=== PATIENT | female | born 1995 | race Asian ===

== ENCOUNTER → 2017-06-22 00:56 | Emergency (ER) | payer OTHER ==
--- NOTE | 2017-06-22 01:59 | ED ---
Psychiatric Complaint - HPI Summary HPI Summary: Ciro presents with increase depression. She has been having these episodes were she has been super depressed and has thoughts of self harming but her friends take her out of it or she goes to [place]. She states today school and her ex boyfriend and her boyfriend calling her weak caused her to doubt herself. She was tempted to start to cut herself again which she had done in past. She also carries her depression meds in her pocket and she has thoughts to take them all at once. She denies any drug or ETOH use. - History Of Current Complaint Chief Complaint: EDMentalHealth Time Seen by Provider: 06/22/17 01:24 PMH/Surg Hx/FS Hx/Imm Hx Endocrine/Hematology History: Denies: Hx Anticoagulant Therapy Psychiatric History: Reports: Hx Depression Infectious Disease History: No Infectious Disease History: Denies: Traveled Outside the [place] in Last 30 Days - Family History Known Family History: Positive: None - Social History Alcohol Use: None Substance Use Type: Reports: None, Prescribed Hx Tobacco Use: No Smoking Status (MU): Never Smoked Tobacco Review of Systems Negative: Fever Negative: Chest Pain Negative: Shortness Of Breath Positive: Depressed All Other Systems Reviewed And Are Negative: Yes Physical Exam Triage Information Reviewed: Yes Vital Signs On Initial Exam: Initial Vitals Temp Pulse Resp BP Pulse Ox 98.8 F 67 12 132/75 100 06/22/17 01:01 06/22/17 01:01 06/22/17 01:01 06/22/17 01:01 06/22/17 01:01 Vital Signs Reviewed: Yes Appearance: Positive: Well-Appearing Skin: Positive: Warm, Dry Head/Face: Positive: Normal Head/Face Inspection Eyes: Positive: Normal, Conjunctiva Clear Respiratory/Lung Sounds: Positive: Clear to Auscultation, Breath Sounds Present Cardiovascular: Positive: Normal, RRR Abdomen Description: Positive: Nontender, Soft Bowel Sounds: Positive: Present - Kasie Coma Scale Coma Scale Total: 15 Diagnostics - Vital Signs Vital Signs Temp Pulse Resp BP Pulse Ox 06/22/17 01:01 98.8 F 67 12 132/75 100 - Laboratory Lab Statement: Any lab studies that have been ordered have been reviewed, and results considered in the medical decision making process. Course/Dx - Course Course Of Treatment: Ciro presents with increase depression. She has been having these episodes were she has been super depressed and has thoughts of self harming but her friends take her out of it or she goes to [employer]. She states today school and her ex boyfriend and her boyfriend calling her weak caused her to doubt herself. She was tempted to start to cut herself again which she had done in past. She also carries her depression meds in her pocket and she has thoughts to take them all at once. She denies any drug or ETOH use. normal PE. medically clear for MHE. signed out to dr summers pending MHE. - Differential Dx/Clinical Impression Differential Diagnosis/HQI/PQRI: Positive: Anxiety, Depression, Suicidal Ideation Provider Diagnosis: Depression Discharge - Discharge Plan Condition: Stable Disposition: OTHER Discharge Disposition Comment: signed out to dr summers pending MHE
[2017-06-22 02:19] LABS: Urine Bacteria Absent (Absent); Urine Bilirubin Negative (Negative); Urine Glucose Negative (Negative); Urine Nitrite Negative (Negative)
[2017-06-22 02:25] LABS: Comments Flag Yes; Hematocrit 36 % (35-47); Hemoglobin 11.8 g/dl (12.0-16.0); Mean Corpuscular HGB Conc 33 g/dl (31-36); Mean Corpuscular Hemoglobin 28 pg (27-31); Mean Corpuscular Volume 86 fL (80-97); Mean Platelet Volume 9 um3 (7.4-10.4); Red Blood Count 4.16 10^6/ul (4.0-5.4); Red Cell Distribution Width 14 % (10.5-15); White Blood Count 8.5 10^3/ul (3.5-10.8)
[2017-06-22 02:35] LABS: ALT 17 U/L (7-52); AST 20 U/L (13-39); Albumin 4.2 g/dL (3.2-5.2); Alkaline Phosphatase 44 U/L (34-104); Anion Gap 7 mmol/L (2-11); BUN/Creatinine Ratio 14.5 (8-20); Benzodiazepine Urine Screen None Detected (None Detect); Blood Urea Nitrogen 10 mg/dL (6-24); CO2 Carbon Dioxide 24 mmol/L (22-32); Calcium 9.1 mg/dL (8.6-10.3); Chloride 103 mmol/L (101-111); EGFR African American 138.1 (>60); EGFR Non-African American 107.4 (>60); Globulin 3.1 g/dL (2-4); Glucose 99 mg/dL (70-100); Potassium 3.8 mmol/L (3.5-5.0); Sodium 134 mmol/L (133-145); Total Protein 7.3 g/dL (6.4-8.9)
[2017-06-22 02:36] LABS: Acetaminophen < 15 mcg/mL; Alcohol < 10 mg/dL (<10); Salicylate < 2.50 mg/dL (<30)
[2017-06-22 02:55] LABS: TSH (Thyroid Stimulating Horm) 3.52 mcIU/mL (0.34-5.60)
[2017-06-22 06:39] VITALS: BP 120/70
--- NOTE | 2017-06-22 14:27 | ED ---
Minh Layton Rebecca, scribed for Shama Rios MD on 06/22/17 at 0410 . Progress - Progress Note Progress Note: Pt was signed out from MARILEE Hurtado, pending disposition, awaiting MHE. Course/Dx - Course Course Of Treatment: Pt was signed out from MARILEE Hurtado, pending disposition , awaiting MHE. Medically cleared for MHE at 0400. Pt will be signed out, pending disposition, awaiting MHE. Patient medications reviewed. Elevated BP noted. - Diagnoses Provider Diagnoses: Depression The documentation as recorded by the Minh coto Rebecca accurately reflects the service I personally performed and the decisions made by Gabriel rosario Barbara J, MD.
== END ==
LOC: ED 00:56
DX: F32.9 Major depressive disorder, single episode, unspecified (principal); F41.9 Anxiety disorder, unspecified
CPT/HCPCS: 36415; 80053; 80307; 80320; 80329; 81003; 81015; 84443; 85025; 87086; 99284; G0480

== ENCOUNTER 2018-03-18 10:28 | Emergency (ER) | payer OTHER ==
[2018-03-18 10:39] VITALS: BP 122/65
[2018-03-18] MEDS ORDERED: Ketorolac INJ* 30 MG/ML 1 ML VIAL IV PUSH ONE (10:41)
[2018-03-18 11:18] LABS: ABS Basophils 0.1 10^3/ul (0-0.2); ABS Eosinophils 0.1 10^3/ul (0-0.6); ABS Lymphocytes 1.5 10^3/ul (1.0-4.8); ABS Monocytes 0.5 10^3/ul (0-0.8); ABS Neutrophils 3.9 10^3/ul (1.5-7.7); ABS Nucleated RBC 0 10^3/ul; Eosinophil % 0.9 % (0-6); Hematocrit 36 % (35-47); Hemoglobin 11.6 g/dl (12.0-16.0); Lymphocyte % 25.4 % (25-47); Mean Corpuscular HGB Conc 33 g/dl (31-36); Mean Corpuscular Hemoglobin 28 pg (27-31); Mean Corpuscular Volume 85 fL (80-97); Mean Platelet Volume 8.7 um3 (7.4-10.4); Nucleated Red Blood Cells % 0; Platelet Count 298 10^3/ul (150-450); Red Cell Distribution Width 14 % (10.5-15)
--- NOTE | 2018-03-18 11:18 | RAD ---
HISTORY: R sided chest discomfort COMPARISONS: June 29, 2016 VIEWS: 4: Frontal dual-energy and lateral views of the chest. FINDINGS: CARDIOMEDIASTINAL SILHOUETTE: The cardiomediastinal silhouette is normal. IRIS: The iris are normal. PLEURA: The costophrenic angles are sharp. No pleural abnormalities are noted. LUNG PARENCHYMA: The lungs are clear. ABDOMEN: The upper abdomen is clear. There is no subphrenic gas. BONES AND SOFT TISSUES: No bone or soft tissue abnormalities are noted. OTHER: None. IMPRESSION: NO ACTIVE CARDIOPULMONARY DISEASE.
[2018-03-18 11:23] LABS: EGFR Non-African American 99.1 (>60)
--- NOTE | 2018-03-18 17:45 | ED ---
Jhonathan Layton Tenzin, scribed for Milo Torres MD on 03/18/18 at 1046 . Upper Extremity Pain - HPI Summary HPI Summary: Pt is a 22 years old female presenting to the ED complaining of Upper extremity pain right lung since waking up this morning. Pt denies cough, SOB, leg pain or swelling, fever, abd pain, dysuria, runny nose, heart burn. Pt notes that the pain is aggravated by laying down and during deep breathes. Pt notes that the pain is better when she is standing still. Pt notes that she is on control. She notes that she has not been out of the country but travelled to [place] last week. Pt take Prozac for depression. LNMP: a week ago. - History of Current Complaint Chief Complaint: EDChestPainROMI Stated Complaint: CHEST PAIN Time Seen by Provider: 03/18/18 10:33 Hx Obtained From: Patient - Allergies/Home Medications Allergies/Adverse Reactions: Allergies Allergy/AdvReac Type Severity Reaction Status Date / Time No Known Allergies Allergy Verified 03/18/18 10:39 Home Medications: Home Medications FLUoxetine CAP* [PROzac CAP*] 20 mg PO DAILY 03/18/18 [History Confirmed ] Hydrocortisone 1% CREAM* [Hytone (Topical) 1%*] 1 applic BOTH EARS DAILY PRN 11/04 [History Confirmed 03/18/18] Levonorgestrel-Ethin Estradiol [Aubra] 1 tab PO DAILY 03/18/18 [History Confirmed 03/18/18] clonazePAM TAB(*) [KlonoPIN TAB(*)] 0.5 mg PO TID PRN 03/18/18 [History Confirmed 03/18/18] PMH/Surg Hx/FS Hx/Imm Hx Endocrine/Hematology History: Denies: Hx Anticoagulant Therapy Sensory History: Denies: Hx Deafness Opthamlomology History: Denies: Hx Legally Blind Psychiatric History: Reports: Hx Depression Denies: Hx Eating Disorder Infectious Disease History: No Infectious Disease History: Denies: Traveled Outside the [place] in Last 30 Days - Family History Known Family History: Positive: None, Other - Pt french any relevant family history. - Social History Alcohol Use: None Substance Use Type: Reports: None Hx Tobacco Use: No Smoking Status (MU): Never Smoked Tobacco Review of Systems Negative: Fever Negative: Sore Throat, Nasal Discharge Negative: Shortness Of Breath, Cough Negative: Abdominal Pain Negative: dysuria Positive: Other - Upper extremity pain. All Other Systems Reviewed And Are Negative: Yes Physical Exam - Summary Physical Exam Summary: Appearance: Well appearing, no pain distress Skin: warm, dry, reflects adequate perfusion Head/face: normal Eyes: EOMI, ELVI ENT: normal Neck: supple, non-tender Respiratory: CTA, breath sounds present Cardiovascular: RRR, pulses symmetrical Abdomen: non-tender, soft Bowel Sounds: present Musculoskeletal: normal, strength/ROM intact Neuro: normal, sensory motor intact, A&Ox3 Triage Information Reviewed: Yes Vital Signs On Initial Exam: Initial Vitals Temp Pulse Resp BP Pulse Ox 97.9 F 51 15 122/65 100 03/18/18 10:33 03/18/18 10:33 03/18/18 10:33 03/18/18 10:33 03/18/18 10:33 Vital Signs Reviewed: Yes Diagnostics - Vital Signs Vital Signs Temp Pulse Resp BP Pulse Ox 03/18/18 10:33 97.9 F 51 15 122/65 100 - Laboratory Lab Results: Lab Results 03/18/18 03/18/18 03/18/18 Range/Units 10:49 10:49 10:49 WBC 6.0 (3.5-10.8) 10^3/ul RBC 4.20 (4.00-5.40) 10^6/ul Hgb 11.6 L (12.0-16.0) g/dl Hct 36 (35-47) % MCV 85 (80-97) fL MCH 28 (27-31) pg MCHC 33 (31-36) g/dl RDW 14 (10.5-15) % Plt Count 298 (150-450) 10^3/ul MPV 8.7 (7.4-10.4) um3 Neut % (Auto) 65.2 (38-83) % Lymph % (Auto) 25.4 (25-47) % [place] % (Auto) 7.7 H (0-7) % Eos % (Auto) 0.9 (0-6) % Baso % (Auto) 0.8 (0-2) % Absolute Neuts (auto) 3.9 (1.5-7.7) 10^3/ul Absolute Lymphs (auto) 1.5 (1.0-4.8) 10^3/ul Absolute Monos (auto) 0.5 (0-0.8) 10^3/ul Absolute Eos (auto) 0.1 (0-0.6) 10^3/ul Absolute Basos (auto) 0.1 (0-0.2) 10^3/ul Absolute Nucleated RBC 0 10^3/ul Nucleated RBC % 0 D-Dimer, Quantitative < 200 (Less Than 230) ng/mL Sodium 136 (135-145) mmol/L Potassium 3.9 (3.5-5.0) mmol/L Chloride 105 (101-111) mmol/L Carbon Dioxide 25 (22-32) mmol/L Anion Gap 6 (2-11) mmol/L BUN 8 (6-24) mg/dL Creatinine 0.74 (0.51-0.95) mg/dL Est GFR ( Amer) 119.9 (>60) Est GFR (Non-Af Amer) 99.1 (>60) BUN/Creatinine Ratio 10.8 (8-20) Glucose 92 (70-100) mg/dL Calcium 9.1 (8.6-10.3) mg/dL Beta HCG, Quant < 0.60 mIU/mL Result Diagrams: 03/18/18 10:49 03/18/18 10:49 Lab Statement: Any lab studies that have been ordered have been reviewed, and results considered in the medical decision making process. - Radiology CHEST X RAY Radiology Interpretation Completed By: Radiologist - IMPRESSION: NO ACTIVE CARDIOPULMONARY DISEASE. - EKG 10:30 Cardiac Rate: NL - at [address] Segment: Normal EKG Interpretation: Normal axis. Re-Evaluation - Re-Evaluation First Eval Re-Evaluation Time: 11:30 Change: Improved - Pt notes that the pain in upper extremity is gone after Toradol. Course/Dx - Course Course Of Treatment: Pt with R sided pain without injury. No fever or cough. Xray neg. Ddimer neg. On OCP. No GI sx. Improved with toradol. F/U PMD. - Diagnoses Differential Diagnosis/HQI/PQRI: Positive: Other - PE, pneumonia, GI dz, chest wall, cardiac Provider Diagnoses: Chest wall pain Discharge - Sign-Out/Discharge Documenting (check all that apply): Discharge/Admit/Transfer - Discharge - Discharge Plan Condition: Stable Disposition: HOME Patient Education Materials: Chest Pain (ED), Chest Wall Pain (ED) Referrals: [facility] - [place] [Primary Care Provider] - Additional Instructions: Deep breathing exercises every half hour as shown. Ibuprofen as needed. Return with increased difficulty in breathing, worse pain, severe heartburn, new symptoms or other concerns. Follow up with your primary care physician in three days. Return to the emergency department for any new or worsening symptoms. - Billing Disposition and Condition Condition: STABLE Disposition: Home The documentation as recorded by the Jhonathan coto Tenzin accurately reflects the service I personally performed and the decisions made by , Milo Torres MD.
== END 2018-03-18 11:36 | disposition home or self-care (01) ==
LOC: ED 10:28
DX: R07.89 Other chest pain (principal); F32.9 Major depressive disorder, single episode, unspecified; Z79.899 Other long term (current) drug therapy
CPT/HCPCS: 36415; 71046; 80048; 84702; 85025; 85379; 93005; 96374; 99282; J1885

== ENCOUNTER 2019-01-23 17:01 | Emergency (ER) | payer OTHER ==
[2019-01-23 17:24] LABS: ABS Basophils 0.1 10^3/ul (0-0.2); ABS Lymphocytes 2.3 10^3/ul (1.0-4.8); ABS Monocytes 0.6 10^3/ul (0-0.8); ABS Neutrophils 3.9 10^3/ul (1.5-7.7); Eosinophil % 0.7 %; Hematocrit 36 % (35-47); Hemoglobin 12.1 g/dL (12.0-16.0); Lymphocyte % 33.5 %; Mean Corpuscular HGB Conc 33 g/dL (31-36); Mean Corpuscular Hemoglobin 28 pg (27-31); Mean Corpuscular Volume 85 fL (80-97); Mean Platelet Volume 8.5 fL (7.4-10.4); Nucleated Red Blood Cells % 0.1; Platelet Count 298 10^3/uL (150-450); Red Cell Distribution Width 14 % (10.5-15); White Blood Count 6.9 10^3/uL (3.5-10.8)
--- NOTE | 2019-01-23 17:27 | ED ---
Psychiatric Complaint - HPI Summary HPI Summary: Pt is a 23 y/o F presenting to the ED brought in by EMS for an overdose. This morning, she took her normal dose of 40mg Fluoxetine, and then this afternoon at 1530 she took 240 more mg. She states she knew that it would not kill her, but she just wanted to pass out for a little while, and reports feeling depressed at the time. She currently denies SOB, palpitations, prior suicide attempts, HI, hx of HTN or DM, or drug allergies. She has had tonsillectomy. - History Of Current Complaint Chief Complaint: EDSuicidal Time Seen by Provider: 01/23/19 17:09 Accompanied By: alone Hx Obtained From: Patient Onset/Duration: Sudden Onset, Lasting Minutes, Resolved Timing: Minutes Severity Initially: Moderate Severity Currently: Mild Character: Depressed Aggravating Factor(s): Nothing Alleviating Factor(s): Nothing Associated Signs And Symptoms: Positive: Negative Related History: Negative For: Prior Psychiatric Issues Has Suicidal: Denies: Thoughts Has Homicidal: Denies: Thoughts Ingestion History: Type/Name Of Drug - Fluoxetine, Amount Ingested - 240mg, Approximate Time Of Ingestion - 1330 - Allergies/Home Medications Allergies/Adverse Reactions: Allergies Allergy/AdvReac Type Severity Reaction Status Date / Time No Known Allergies Allergy Verified 03/18/18 10:39 PMH/Surg Hx/FS Hx/Imm Hx Previously Healthy: Yes Endocrine/Hematology History: Denies: Hx Anticoagulant Therapy Sensory History: Denies: Hx Legally Blind, Hx Deafness Opthamlomology History: Denies: Hx Legally Blind Psychiatric History: Reports: Hx Depression Denies: Hx Eating Disorder Infectious Disease History: No Infectious Disease History: Denies: Traveled Outside the [place] in Last 30 Days - Family History Known Family History: Negative: Renal Disease - Social History Alcohol Use: None Hx Substance Use: No Substance Use Type: Reports: None Hx Tobacco Use: No Smoking Status (MU): Never Smoked Tobacco Review of Systems Negative: Palpitations Negative: Shortness Of Breath Negative: Depressed, Other - SI/HI All Other Systems Reviewed And Are Negative: Yes Physical Exam - Summary Physical Exam Summary: GENERAL: Patient is a well-developed and nourished female who is lying comfortable in the stretcher. Patient is not in any acute respiratory distress. HEAD AND FACE: Normocephalic EYES: PERRLA, EOMI x 2. EARS: Hearing grossly intact. MOUTH: Oropharynx within normal limits. NECK: Supple, trachea is midline, no adenopathy, no JVD, no carotid bruit. CHEST: Symmetric, no tenderness at palpation LUNGS: Clear to auscultation bilaterally. No wheezing or crackles. CVS: Regular rate and rhythm, S1 and S2 present, no murmurs or gallops appreciated. ABDOMEN: Soft, non-tender. Bowel sounds are normal. No abnormal abdominal pulsations. EXTREMITIES: Full ROM in all major joints, no edema, no cyanosis or clubbing. NEURO: Alert and oriented x 3. No acute neurological deficits. Speech is normal and follows commands. SKIN: Dry and warm Psych: Flat affect, positive SI, no HI. Triage Information Reviewed: Yes Vital Signs On Initial Exam: Initial Vitals Temp Pulse Resp BP Pulse Ox 97.8 F 70 16 119/66 97 01/23/19 17:07 01/23/19 17:07 01/23/19 17:07 01/23/19 17:07 01/23/19 17:07 Vital Signs Reviewed: Yes Diagnostics - Vital Signs Vital Signs Temp Pulse Resp BP Pulse Ox 01/23/19 17:07 97.8 F 70 16 119/66 97 - Laboratory Result Diagrams: 01/23/19 17:17 01/23/19 17:17 Lab Statement: Any lab studies that have been ordered have been reviewed, and results considered in the medical decision making process. - EKG 1724 Cardiac Rate: NL - 67bpm EKG Rhythm: Sinus Rhythm ST Segment: Normal Ectopy: None Summary of EKG Findings: EKG at 1724 shows NSR at 67bpm with nml axis and nml intervals. Course/Dx - Course Course Of Treatment: Pt is a 23 y/o F presenting to the ED brought in by EMS for a psychiatric complaint. She took her normal dose of Fluoxetine this morning , 40mg, then took 240mg more at 1330, because she was feeling depressed and wanted to "pass out for a little." She currently denies SOB, palpitations, prior suicide attempts, or HI. EKG at 1724 shows NSR at 67bpm with nml axis and nml intervals. Poison control advised that the pt just needs to be monitored for 6 hours after presentation. The pt will be signed out to Dr. Salas on shift change pending MHE with dx including depression, suicidal ideations, and intentional overdose. - Differential Dx/Clinical Impression Provider Diagnosis: Intentional overdose of drug in tablet form, Suicidal ideation, Depression Discharge - Sign-Out/Discharge Documenting (check all that apply): Sign-Out Patient Signing out patient TO: Jon Salas - Discharge Plan Condition: Stable Referrals: [facility] - [place] [Z.BUSINESS, APPLICATION, OTHER] - - Billing Disposition and Condition Condition: STABLE - Attestation Statements Document Initiated by Scribe: Yes Documenting Scribe: Diann Jnoes Provider For Whom Scribe is Documenting (Include Credential): César Andrews MD. Scribe Attestation: Diann Layton, maria esthered for César Andrews MD. on 01/23/19 at 2131. Scribe Documentation Reviewed: Yes Provider Attestation: The documentation as recorded by the scribe, Diann Jones accurately reflects the service I personally performed and the decisions made by Christopher rosario MD. Status of Scribe Document: Viewed
[2019-01-23 17:40] LABS: ALT 10 U/L (7-52); AST 17 U/L (13-39); Albumin 4.3 g/dL (3.2-5.2); Albumin/Globulin Ratio 1.4 (1-3); Alkaline Phosphatase 53 U/L (34-104); Anion Gap 5 mmol/L (2-11); BUN/Creatinine Ratio 15.3 (8-20); Blood Urea Nitrogen 11 mg/dL (6-24); CO2 Carbon Dioxide 25 mmol/L (22-32); Calcium 9.6 mg/dL (8.6-10.3); Chloride 106 mmol/L (101-111); EGFR African American 122.6 (>60); EGFR Non-African American 101.3 (>60); Globulin 3.1 g/dL (2-4); Glucose 94 mg/dL (70-100); Potassium 4.2 mmol/L (3.5-5.0); Sodium 136 mmol/L (135-145); Total Protein 7.4 g/dL (6.4-8.9)
[2019-01-23 17:46] LABS: Acetaminophen < 15 mcg/mL; Alcohol < 10 mg/dL (<10); Salicylate < 2.50 mg/dL (<30)
[2019-01-23 17:47] LABS: HCG Pregnancy < 0.60 mIU/mL
[2019-01-23 17:51] LABS: Urine Appearance Cloudy; Urine Bacteria Absent (Absent); Urine Bilirubin Negative (Negative); Urine Blood Negative (Negative); Urine Color Yellow; Urine Glucose Negative (Negative); Urine Ketones Negative (Negative); Urine Nitrite Negative (Negative); Urine Protein 1+(30 mg/dL) (Negative); Urine Red Blood Cell 2+(6-10/hpf) (Absent); Urine Specific Gravity 1.018 (1.010-1.030); Urine Squamous Epithelial Cell Present (Absent); Urine Urobilinogen Negative (Negative); Urine White Blood Cell Trace(0-5/hpf) (Absent)
[2019-01-23 18:00] LABS: TSH (Thyroid Stimulating Horm) 1.56 mcIU/mL (0.34-5.60)
[2019-01-23 18:04] LABS: Urine Benzodiazepine Screen None Detected (None Detect); Urine Opiates Screen None Detected (None Detect)
--- NOTE | 2019-01-24 07:03 | ED ---
Progress - Progress Note Progress Note: Patient is received as a sign out from Dr. Andrews at 2200 01/23/19 shift end. 0202 - Patient's case was reviewed by Dr. Zarate, patient will be a mental health hold until this morning for patient to be evaluated by psychiatrist. Patient is signed out to Dr. Salas at 0700 01/24/19 shift change pending psychiatrist evaluation and disposition of this MH hold. - Consult/PCP Time Called: 23:00 Course/Dx - Course Course Of Treatment: Patient is received as a sign out from Dr. Andrews at 2200 06/05 shift end. 020 - Patient's case was reviewed by Dr. Zarate, patient will be a mental health hold until this morning for patient to be evaluated by psychiatrist. Patient is signed out to Dr. Salas at 0700 01/24/19 shift change pending psychiatrist evaluation and disposition of this MH hold. - Diagnoses Provider Diagnoses: Intentional overdose of drug in tablet form, Suicidal ideation, Depression - Provider Notifications Discussed Care Of Patient With: Brendon Zarate Time Discussed With Above Provider: 02:02 Instructed by Provider To: Other - 020 - Patient's case was reviewed by Dr. Zarate, patient will be a mental health hold until this morning for patient to be evaluated by psychiatrist. Discharge - Sign-Out/Discharge Documenting (check all that apply): Sign-Out Patient, Receiving Sign-Out Signing out patient TO: Ben Pineda Receiving patient FROM: César Andrews - Discharge Plan Condition: Stable Referrals: [facility] - [place] [Z.BUSINESS, APPLICATION, OTHER] - - Attestation Statements Document Initiated by Scribe: Yes Documenting Scribe: KONSTANTIN SAMSON Provider For Whom Averyibzehra is Documenting (Include Credential): LINDA SALAS MD Scribzehra Attestation: KONSTANTIN Layton , scribed for LINDA SALAS MD on 01/24/19 at 0703. Status of Scribe Document: Ready
[2019-01-24 13:22] VITALS: BP 104/61
--- NOTE | 2019-01-24 15:40 | ED ---
Progress - Progress Note Progress Note: Receiving sign-out from Dr. Salas at shift change 0700 pending MHE. Patient was discharged by MHE with a diagnose of depression, per Dr. Ferrell. - Consult/PCP Time Called: 23:00 Course/Dx - Course Course Of Treatment: Receiving sign-out from Dr. Salas at shift change 0700 pending MHE. Patient was discharged by MHE with a diagnose of depression, per Dr. Ferrell. - Diagnoses Provider Diagnoses: Intentional overdose of drug in tablet form, Suicidal ideation, Depression - Provider Notifications Time Discussed With Above Provider: 02:02 Instructed by Provider To: Other - 0202 - Patient's case was reviewed by Dr. Zarate, patient will be a mental health hold until this morning for patient to be evaluated by psychiatrist. Discharge - Sign-Out/Discharge Documenting (check all that apply): Patient Departure - Discharge, per MHE, Receiving Sign-Out Receiving patient FROM: Jon Salas - At shift change 0700 Patient Received Moderate/Deep Sedation with Procedure: No - Discharge Plan Condition: Stable Referrals: [facility] - [place] [Z.BUSINESS, APPLICATION, OTHER] - - Attestation Statements Document Initiated by Scribe: Yes Documenting Scribe: Remington Sarabia Provider For Whom Scribe is Documenting (Include Credential): Ben Pineda MD Scribe Attestation: Remington Layton, scribed for Ben Pineda MD on 01/24/19 at 1539. Status of Scribe Document: Ready
== END 2019-01-24 13:23 | disposition home or self-care (01) ==
LOC: ED 17:01
DX: F32.9 Major depressive disorder, single episode, unspecified (principal); T43.222A Poisoning by selective serotonin reuptake inhibitors, intentional self-harm, initial encounter; Y92.9 Unspecified place or not applicable; R45.851 Suicidal ideations
CPT/HCPCS: 36415; 80053; 80307; 80320; 80329; 81003; 81015; 83605; 84443; 84702; 85025; 87086; 93005; 99285; G0480